=== PATIENT | female | born 1975 | race Caucasian/White ===

== ENCOUNTER 2017-09-02 18:32 | Emergency (ER) | payer OTHER ==
[~2017-09-02] VITALS: Ht 162.6 cm; Wt 72.7 kg
[2017-09-02 18:36] VITALS: BP 112/55; PULSE 100; TEMP 98.5
[2017-09-02 19:07] LABS: COLLECTION METHOD CLEAN CATCH
[2017-09-02] MEDS ORDERED: BENADRYL25 M2 PO (19:09)
[2017-09-02] MEDS ORDERED: BENTYL 20MG20 MG/TAB PO (19:09)
[2017-09-02] MEDS ORDERED: ULTRAM 50MG TAB50 MG PO (19:10)
[2017-09-02 19:18] LABS: PH 5 (5-8); SQUAMOUS EPITHELIAL 0-2 /hpf; URINE APPEARANCE Clear; URINE BACTERIA None Seen /hpf; URINE BILIRUBIN Negative (NEGATIVE); URINE BLOOD 2+ (NEGATIVE); URINE COLOR Yellow; URINE GLUCOSE Negative (NEGATIVE); URINE KETONE Negative (NEGATIVE); URINE LEUKOCYTE ESTERASE Negative (NEGATIVE); URINE PROTEIN(semi-quant) Negative (NEGATIVE); URINE RBC 0-2 /hpf; URINE UROBILINOGEN Negative (NEGATIVE); URINE WBC 0-2 /hpf
== END 2017-09-02 20:13 | disposition home or self-care (01) ==
LOC: COL.ER 18:32
PROVIDERS: Emergency Medicine
DX: L50.9 Urticaria, unspecified (principal); R35.0 Frequency of micturition; Z90.710 Acquired absence of both cervix and uterus
CPT/HCPCS: J1100